=== PATIENT | male | born 1990 | race Caucasian/White ===

== ENCOUNTER 2020-11-11 20:12 | Emergency (ER) | payer SELFPAY ==
[~2020-11-11] VITALS: Ht 182.9 cm; Wt 90.7 kg
[2020-11-11 21:19] VITALS: BP 120/80
--- NOTE | 2020-11-11 21:19 | NUR ---
Patient discharged to home in stable condition. Written and verbal after care instructions given. Patient verbalizes understanding of instruction.
== END 2020-11-11 21:20 | disposition home or self-care (01) ==
LOC: ER 20:16
DX: S20.211A Contusion of right front wall of thorax, initial encounter (principal); V00.311A Fall from snowboard, initial encounter; Y93.23 Activity, snow (alpine) (downhill) skiing, snowboarding, sledding, tobogganing and snow tubing; Y92.89 Other specified places as the place of occurrence of the external cause; Y99.8 Other external cause status
CPT/HCPCS: 71100-TC